=== PATIENT | female | born 1950 | race Caucasian/White ===

== ENCOUNTER 2017-07-30 16:25 | Observation (INO) | payer SELFPAY ==
[~2017-07-30] VITALS: Ht 170.2 cm; Wt 69.0 kg
[2017-07-30 16:52] VITALS: BP 134/78; PULSE 87; TEMP 99.3; O2SAT 97
[2017-07-30] MEDS ORDERED: Anxiety Med (17:41)
[2017-07-30] MEDS ORDERED: SODIUM CHLORIDE 0.9% FLUSH 10 ML FLUSH IV FLUSH PRN ×2 (18:15→21:45)
--- NOTE | 2017-07-30 18:16 | PD ---
HPI Chief Complaint: Abdominal Pain Time Seen by Provider: 17:58 Travel History International Travel<30 days: No Contact w/Intl Traveler<30days: No Traveled to known affect area: No History of Present Illness HPI This is a 66-year-old female who presents to the emergency department with right lower quadrant abdominal pain that started yesterday, has been constant and moderate severity since then, associated with multiple episodes of vomiting. She has had some subjective fever. She denies any loose stools. She has not been able to keep anything down today. She's never had abdominal surgery. She does drink 4-5 alcoholic beverages a day. PFSH Past Medical History Anxiety: Yes Diminished Hearing: No Tetanus Vaccination: Unknown Influenza Vaccination: Yes ?: Not Past Surgical History Gynecologic Surgery: Yes (cryo sx on cervix) Social History Alcohol Use: Yes (4 beers/day) Tobacco Use: No Substance Use: No Allergies-Medications (Allergen,Severity, Reaction): Coded Allergies: Sulfa (Sulfonamide Antibiotics) (Verified Allergy, Unknown, Swelling, ) amoxicillin (Verified Adverse Reaction, Unknown, Nausea/Vomiting, 07/30/17 ) Reported Meds & Prescriptions Reported Meds & Active Scripts Active Reported [Anxiety Med] Review of Systems Except as stated in HPI: all other systems reviewed are Neg Physical Exam Narrative GENERAL:Well appearing, no acute distress SKIN: Focused skin assessment warm and dry. HEAD: Atraumatic. Normocephalic. EYES: Pupils equal and round. No injection or drainage. ENT: Moist mucous membranes NECK: Trachea midline. CARDIOVASCULAR: Regular rate and rhythm. No murmur appreciated. RESPIRATORY: Clear to auscultation. Breath sounds equal bilaterally. GASTROINTESTINAL: Abdomen soft, tender to palpation in the right lower quadrant and suprapubic region with guarding. MUSCULOSKELETAL: No obvious deformities. NEUROLOGICAL: Awake and alert. No obvious cranial nerve deficits. Moving all extremities. PSYCHIATRIC: Appropriate mood and affect; insight and judgment normal. Data Data Last Documented VS Vital Signs Date Time Temp Pulse Resp B/P (MAP) Pulse Ox O2 Delivery O2 Flow Rate FiO2 07/30/17 18:26 77 16 137/77 (97) 98 07/30/17 16:52 99.3 Orders Orders Complete Blood Count With Diff (07/30/17 18:06) Comprehensive Metabolic Panel (07/30/17 18:06) Lipase (07/30/17 18:06) Ct Abd/Pel W Iv Contrast(Rout) (07/30/17 18:06) Iv Access Insert/Monitor (07/30/17 18:06) Ecg Monitoring (07/30/17 18:06) Oximetry (07/30/17 18:06) Sodium Chloride 0.9% Flush (Ns Flush) (07/30/17 18:15) Labs Laboratory Tests Test 07/30/17 18:16 White Blood Count 12.6 TH/MM3 Red Blood Count 4.35 MIL/MM3 Hemoglobin 13.8 GM/DL Hematocrit 39.9 % Mean Corpuscular Volume 91.8 FL Mean Corpuscular Hemoglobin 31.7 PG Mean Corpuscular Hemoglobin Concent 34.6 % Red Cell Distribution Width 11.9 % Platelet Count 210 TH/MM3 Mean Platelet Volume 7.6 FL Neutrophils (%) (Auto) 84.5 % Lymphocytes (%) (Auto) 8.4 % Monocytes (%) (Auto) 6.3 % Eosinophils (%) (Auto) 0.3 % Basophils (%) (Auto) 0.5 % Neutrophils # (Auto) 10.6 TH/MM3 Lymphocytes # (Auto) 1.1 TH/MM3 Monocytes # (Auto) 0.8 TH/MM3 Eosinophils # (Auto) 0.0 TH/MM3 Basophils # (Auto) 0.1 TH/MM3 CBC Comment DIFF FINAL Differential Comment MDM Medical Decision Making Medical Screen Exam Complete: Yes Emergency Medical Condition: Yes Interpretation(s) Afebrile, no tachycardia, no hypoxia Mild leukocytosis Differential Diagnosis Acute appendicitis, kidney stone, cholecystitis, urinary tract infection, pyelonephritis Narrative Course This is a 66-year-old female who presents to the emergency department with right lower quadrant abdominal pain. She is guarding in the right lower quadrant on exam. She has leukocytosis. I suspect she may have appendicitis. CT abdomen and pelvis is pending. Disposition will be made by oncoming provider. Kelsey Carroll MD Jul 30, 2017 18:16
[2017-07-30 18:25] VITALS: O2SAT 97
[2017-07-30 18:25] LABS: AUTOMATED NEUTROPHIL # 10.6 TH/MM3 (1.8-7.7); BASOPHIL # 0.1 TH/MM3 (0-0.2); BASOPHIL % 0.5 % (0.0-2.0); EOSINOPHIL % 0.3 % (0.0-4.0); HEMATOCRIT 39.9 % (35.0-46.0); LYMPH % 8.4 % (9.0-44.0); LYMPHOCYTE # 1.1 TH/MM3 (1.0-4.8); MEAN CELL VOLUME 91.8 FL (80.0-100.0); MEAN CORPUSCULAR HEMOGLOBIN 31.7 PG (27.0-34.0); MEAN CORPUSCULAR HGB CONC 34.6 % (32.0-36.0); MONO % 6.3 % (0.0-8.0); NEUT % 84.5 % (16.0-70.0); PLATELET COUNT 210 TH/MM3 (150-450); RED BLOOD COUNT 4.35 MIL/MM3 (4.00-5.30); RED CELL DISTRIBUTION WIDTH 11.9 % (11.6-17.2); WHITE BLOOD COUNT 12.6 TH/MM3 (4.0-11.0)
[2017-07-30 18:26] VITALS: BP 137/77; PULSE 77; RESP 16; O2SAT 98
[2017-07-30 18:26] LABS: HEMO FLAGS DIFF FINAL
[2017-07-30 18:36] LABS: CHLORIDE 105 MEQ/L (98-107); POTASSIUM 3.7 MEQ/L (3.5-5.1); SODIUM (NA) 137 MEQ/L (136-145)
[2017-07-30 18:40] LABS: ANION GAP 7 MEQ/L (5-15); BICARBONATE 25.3 MEQ/L (21.0-32.0); BLOOD UREA NITROGEN 10 MG/DL (7-18)
[2017-07-30 18:43] LABS: ALT (GPT) 36 U/L (10-53); AST (GOT) 31 U/L (15-37); GLOMERULAR FILTRATION RATE 78 ML/MIN (>89)
[2017-07-30 18:44] LABS: TOTAL BILIRUBIN ADULT 0.8 MG/DL (0.2-1.0)
[2017-07-30 18:46] LABS: ALKALINE PHOSPHATASE 124 U/L (45-117)
[2017-07-30 19:00] VITALS: BP 145/67; PULSE 81; RESP 16; O2SAT 98
[2017-07-30] MEDS ORDERED: IOHEXOL 350 MG/ML 10 ML VIAL (for RAD DIAG) IVCONTRAST ONE (19:00)
--- NOTE | 2017-07-30 19:16 | RADRPT ---
EXAM DATE/TIME: 07/30/2017 18:54 [facility] COMPARISON: No previous studies available for comparison. INDICATIONS : Right sided abdominal pain. IV CONTRAST: 96 cc Omnipaque 350 (iohexol) IV ORAL CONTRAST: No oral contrast ingested. RADIATION DOSE: 7.69 CTDIvol (mGy) MEDICAL HISTORY : None SURGICAL HISTORY : Cervical cryo ENCOUNTER: Initial ACUITY: 1 day PAIN SCALE: 8/10 LOCATION: Right lower quadrant TECHNIQUE: Volumetric scanning of the abdomen and pelvis was performed. Using automated exposure control and adjustment of the mA and/or kV according to patient size, radiation dose was kept as low as reasonably achievable to obtain optimal diagnostic quality images. DICOM format image data is av ailable electronically for review and comparison. FINDINGS: LOWER LUNGS: The visualized lower lungs are clear. LIVER: Homogeneous density without lesion. There is no dilation of the biliary tree. No calcifi ed gallstones. SPLEEN: Normal size without lesion. PANCREAS: Within normal limits. KIDNEYS: Normal in size and shape. There is no mass, stone or hydronephrosis. ADRENAL GLANDS: Within normal limits. VASCULAR: There is no aortic aneurysm. BOWEL/MESENTERY: The appendix is thickened measuring 1.3 cm. There is generalized wall thickening and periappendiceal inflammation. The stomach, small bowel, and colon demonstrate no acute abnormali ty. There is no free intraperitoneal air or fluid. ABDOMINAL WALL: Within normal limits. RETROPERITONEUM: There is no lymphadenopathy. BLADDER: No wall thickening or mass. REPRODUCTIVE: Within normal limits. INGUINAL: There is no lymphadenopathy or hernia. MUSCULOSKELETAL: Within normal limits for patient age. CONCLUSION: Acute appendicitis without evidence of perforation. Cyrus Khan MD on July 30, 2017 at 19:12 Board Certified Radiologist. This report was verified electronically.
--- NOTE | 2017-07-30 19:54 | PD ---
Physical Exam Time Seen by Provider: 19:[address] Carroll left this patient with me to check the results of the CT scan for appendicitis. Data Data Last Documented VS Vital Signs Date Time Temp Pulse Resp B/P (MAP) Pulse Ox O2 Delivery O2 Flow Rate FiO2 07/30/17 19:00 16 07/30/17 19:00 81 145/67 (93) 98 Room Air 07/30/17 16:52 99.3 Orders Orders Complete Blood Count With Diff (07/30/17 18:06) Comprehensive Metabolic Panel (07/30/17 18:06) Lipase (07/30/17 18:06) Ct Abd/Pel W Iv Contrast(Rout) (07/30/17 18:06) Iv Access Insert/Monitor (07/30/17 18:06) Ecg Monitoring (07/30/17 18:06) Oximetry (07/30/17 18:06) Sodium Chloride 0.9% Flush (Ns Flush) (07/30/17 18:15) Iohexol 350 Inj (Omnipaque 350 Inj) (07/30/17 19:00) Ondansetron Inj (Zofran Inj) (07/30/17 20:00) Sodium Chlor 0.9% 1000 Ml Inj (Ns 1000 M (07/30/17 20:00) Piperacil-Tazo 3.375 Gm Premix (Zosyn 3. (07/30/17 20:00) Labs Laboratory Tests Test 07/30/17 18:16 White Blood Count 12.6 TH/MM3 Red Blood Count 4.35 MIL/MM3 Hemoglobin 13.8 GM/DL Hematocrit 39.9 % Mean Corpuscular Volume 91.8 FL Mean Corpuscular Hemoglobin 31.7 PG Mean Corpuscular Hemoglobin Concent 34.6 % Red Cell Distribution Width 11.9 % Platelet Count 210 TH/MM3 Mean Platelet Volume 7.6 FL Neutrophils (%) (Auto) 84.5 % Lymphocytes (%) (Auto) 8.4 % Monocytes (%) (Auto) 6.3 % Eosinophils (%) (Auto) 0.3 % Basophils (%) (Auto) 0.5 % Neutrophils # (Auto) 10.6 TH/MM3 Lymphocytes # (Auto) 1.1 TH/MM3 Monocytes # (Auto) 0.8 TH/MM3 Eosinophils # (Auto) 0.0 TH/MM3 Basophils # (Auto) 0.1 TH/MM3 CBC Comment DIFF FINAL Differential Comment Blood Urea Nitrogen 10 MG/DL Creatinine 0.75 MG/DL Random Glucose 105 MG/DL Total Protein 7.6 GM/DL Albumin 3.4 GM/DL Calcium Level 8.8 MG/DL Alkaline Phosphatase 124 U/L Aspartate Amino Transf (AST/SGOT) 31 U/L Alanine Aminotransferase (ALT/SGPT) 36 U/L Total Bilirubin 0.8 MG/DL Sodium Level 137 MEQ/L Potassium Level 3.7 MEQ/L Chloride Level 105 MEQ/L Carbon Dioxide Level 25.3 MEQ/L Anion Gap 7 MEQ/L Estimat Glomerular Filtration Rate 78 ML/MIN Lipase 74 U/L MDM Medical Record Reviewed: Yes Supervised Visit with AMANDA: Yes Interpretation(s) The CT abdomen pelvis shows acute appendicitis without evidence of perforation. Differential Diagnosis Acute appendicitis, mesenteric adenitis, colitis, abscess formation, perforated appendix Narrative Course The patient's last meal was this morning and she said she vomited what she ate. She does appear dehydrated. The patient does not have a true amoxicillin allergy, she got nausea and vomiting when she took by mouth amoxicillin. She denies any medical problems. Physician Communication Physician Communication I discussed the patient with Dr. Colby, the patient will apparently be admitted here at [place] to him. Diagnosis Primary Impression: Acute appendicitis Admitting Information Admitting Physician Requests: Observation Rui Hill MD Jul 30, 2017 19:54
[2017-07-30] MEDS ORDERED: ONDANSETRON HCL 4 MG/2 ML VIAL IV ONE (20:00)
[2017-07-30] MEDS ORDERED: SODIUM CHLOR 0.9% 1000 ML INJ 1,000 ML IV SCH (20:00)
[2017-07-30] MEDS ORDERED: PIPERACIL-TAZO 3.375 GM PREMIX 50 ML IV ONE (20:00)
[2017-07-30 21:08] VITALS: BP 150/83
[2017-07-30] MEDS ORDERED: BUPIVACAINE/EPINEPHRINE 0.5% 50 ML VIAL ONE (21:15)
[2017-07-30] MEDS: SODIUM CHLOR 0.9% 1000 ML INJ 1,000 ML IV SCH (21:40)
[2017-07-30] MEDS ORDERED: POVIDONE IODINE 5% (ANTISEPSIS KIT) 4 APPLICATIONS EACH NARE PRN (21:45)
[2017-07-30] MEDS ORDERED: CHLORHEXIDINE GLUCONATE 2 % 1 PACK (2 CLOTHS) TOPICAL PRN (21:45)
[2017-07-30] MEDS ORDERED: SODIUM CHLORID 0.9% 500 ML IV PRN (21:45)
[2017-07-30] MEDS ORDERED: MORPHINE SULFATE 4 MG/ML INJ IV PUSH PRN (21:45)
[2017-07-30] MEDS: SODIUM CHLORIDE 0.9% FLUSH 10 ML FLUSH IV FLUSH SCH (21:45)
[2017-07-30] MEDS ORDERED: LACTATED RINGER'S 1000 ML IV PRN (21:45)
[2017-07-30] MEDS ORDERED: diphenhydrAMINE HCL 25 MG CAP PO PRN (21:45)
[2017-07-30] MEDS ORDERED: ONDANSETRON HCL 4 MG/2 ML VIAL IV PUSH PRN (21:45)
[2017-07-30] MEDS ORDERED: Post-op Orders (for Pharmacy) MISC XX ONE (21:45)
[2017-07-30] MEDS ORDERED: METOPROLOL TARTRATE 25 MG TAB PO PRN (21:45)
[2017-07-30] MEDS ORDERED: INSULIN HUMAN REGULAR 1,000 UNITS/10 ML VIAL SQ PRN (21:45)
[2017-07-30] MEDS ORDERED: ACETAMINOPHEN/HYDROcodone 325 MG/5 MG TAB PO PRN ×2 (21:45)
[2017-07-30] MEDS ORDERED: MEPERIDINE HCL 25 MG/ML VIAL ONE (22:55)
[2017-07-31] VITALS: BP 159/88; PULSE 90; RESP 16; TEMP 99.3; O2SAT 95
[2017-07-31] MEDS: KETOROLAC TROMETHAMINE 30 MG/ML (IVP) VIAL IVP PRN ×2 (00:49→06:42)
[2017-07-31 04:00] VITALS: BP 116/75; PULSE 85; RESP 16; TEMP 97.4; O2SAT 95
--- NOTE | 2017-07-31 05:02 | MH ---
cc: LOLY REYNOSO DATE OF ADMISSION: 07/30/2017 CHIEF COMPLAINT: Acute appendicitis HISTORY OF PRESENT ILLNESS: The patient is a 66-year-old female who presented to [facility] with 24 hours of increasing right lower quadrant abdominal pain. The pain started yesterday. She has increasing nausea and vomiting and the patient has vomited up breakfast and has not had any food today. She denies fever, chills, night sweats, diarrhea, constipation, hematemesis or hematochezia. The patient has no previous history of abdominal surgery. She never had pain like this prior. The patient underwent evaluation in the emergency department and was noted to have an elevated leukocytosis of 12.[address] scan that was consistent with acute appendicitis without rupture. General surgery was consulted. REVIEW OF SYSTEMS 12-point review of systems was conducted with the patient and is negative for the pertinent positives mentioned above in the history of present illness. PAST MEDICAL HISTORY Anxiety PAST SURGICAL HISTORY Cryo of the cervix. No major abdominal surgery. SOCIAL HISTORY: The patient drinks several beers daily. Denies tobacco or illicit drug use. OCCUPATIONAL HISTORY: She works at [employer]. ALLERGIES: AMOXICILLIN SULFA HOME MEDICATIONS: None. FAMILY HISTORY: Noncontributory. PHYSICAL EXAMINATION: VITAL SIGNS: Pulse 77, temperature 99.3, blood pressure 137/77. The patient is a thin female in no acute distress. HEAD: Normocephalic, atraumatic. Pupils round, reactive to light and accommodation. Sclerae anicteric. Moist mucous membranes. NECK: Supple. No JVD. LUNGS: Clear to auscultation bilaterally. Non-labored breathing pattern. HEART: Regular rhythm. No murmurs. ABDOMEN: Normal bowel sounds. Tender to palpation over the right lower quadrant, with focal peritonitis, without diffuse peritonitis or rebound. BACK: No CVA tenderness. EXTREMITIES: No clubbing, cyanosis or edema. NEUROLOGIC: The patient is awake, alert, and oriented moving all extremities without difficulty, nonfocal. Cranial nerves II through XII are grossly intact. ASSESSMENT/PLAN The patient is a 66-year-old female with early acute appendicitis. I discussed the diagnosis with the patient, the management, options including risks, benefits and alternatives to laparoscopic appendectomy. She agrees to proceed with laparoscopic appendectomy. We will proceed to the operating room based on availability. Will keep the patient n.p.o., give her IV fluids, antibiotics and analgesic pain medications. MD MELBA Ram/MANUEL /9:35 PM /4:08 AM
--- NOTE | 2017-07-31 07:36 | EKG ---
Date Performed: 07/30/2017 Time Performed: 21:10:42 PTAGE: 66 years EKG: Sinus rhythm NONSPECIFIC T-WAVE ABNORMALITY BORDERLINE ECG NO PREVIOUS TRACING DOCTOR: Jose Alfredo Brown Interpretating Date/Time 07/31/2017 07:35:38
[2017-07-31] MEDS: SODIUM CHLOR 0.9% 1000 ML INJ 1,000 ML IV SCH (07:40)
[2017-07-31] MEDS: SODIUM CHLORIDE 0.9% FLUSH 10 ML FLUSH IV FLUSH SCH (08:25)
[2017-07-31 08:59] VITALS: BP 112/66; PULSE 78; RESP 15; TEMP 97.2; O2SAT 94
--- NOTE | 2017-07-31 10:24 | MP ---
cc: LOLY REYNOSO DATE OF SURGERY: 07/30/2017 PREOPERATIVE DIAGNOSIS Acute appendicitis. POSTOPERATIVE DIAGNOSIS Acute suppurative appendicitis. PROCEDURE Laparoscopic appendectomy. ANESTHESIA General. ATTENDING SURGEON Dr. Reynoso. GYROSCOPIC INSTRUMENT MECHANIC Staff. BLOOD LOSS Less than 10 ccs. COMPLICATIONS None. FINDINGS Acute suppurative appendicitis. No other intra-abdominal pathology. INDICATIONS FOR PROCEDURE The patient is a 56-year-old female with 24-hours of increasing right lower quadrant pain, presented to the emergency department at [facility] and found to have acute appendicitis clinically. CT scan confirmed right lower quadrant inflammatory stranding consistent with acute appendicitis. Risks, benefits, alternatives were discussed with the patient for treatment of appendicitis with laparoscopic appendectomy and she agreed to undergo the procedure. PROCEDURE The patient was taken to the operating room and placed in supine position, placed under general endotracheal anesthesia. The patient's abdomen was prepped and draped in sterile fashion. Time-out was performed. The abdomen was entered through a Contreras type technique just around the umbilicus with a curvilinear incision. We spread directly down to the subcutaneous tissue and opened the midline fascia, under visualization, I placed a 10-mm balloon trocar into the abdomen under direct visualization. Insufflated the abdomen, surveyed the abdomen. There was no evidence of any complication from entry. There were no obvious intra-abdominal pathology. The liver and all viscera appeared essentially normal. We then placed a 5-mm port in the suprapubic position, a 5-mm port in the left lower quadrant under visualization with the laparoscope. We were then able to manipulate the omentum in the right colon with graspers and expose the appendix. We easily identified a suppurative appendix on the right lower quadrant. We easily were able to dissect this out freely as this was not ruptured and suppurative but was clearly very inflamed. We easily dissected the base of the appendix which was viable and healthy, nonperforated. We did place a white load on the GI echelon stapler across the base of the appendix, divided this with the stapler and second white load across the mesoappendix and divide this with white load on a GI stapler. The appendix was removed from the abdomen with the EndoCatch bag through the periumbilical 10 mm port. We did suction out some inflammatory fluid. The staple line was intact, viable without any leak or bleeding. At this point in time we turned our attention towards closure. We removed all ports under visualization with the laparoscope and expressed pneumoperitoneum. We closed the 10-mm port with a [id number] Vicryl suture. We closed the skin with 4-0 Monocryl and Dermabond. The patient was discontinued from anesthesia and taken to PACU in stable condition. The patient tolerated the procedure well, no apparent complications. All counts were correct and I was present and scrubbed for the entire procedure. MD MELBA Ram/TLL /10:59 PM /9:15 AM
== END 2017-07-31 10:51 | disposition home or self-care (01) ==
LOC: PHED 16:25 → PHEDA 19:57 → UNDOADMOB 19:57 → PH3A 22:56
PROVIDERS: ADMIT Surgery; ATTEND Surgery
DX: K35.80 Unspecified acute appendicitis (principal); K66.8 Other specified disorders of peritoneum
CPT/HCPCS: 74177; 80053; 83690; 85025; 88304; 93005; 96374; 96376; G0378; J1885; J2175; J2405; J2543; J7030; J7120; Q9967